=== PATIENT | female | born 1970 | race Caucasian/White ===

== ENCOUNTER 2019-02-01 19:59 | Emergency (ER) | payer OTHER ==
[~2019-02-01] VITALS: Ht 165.1 cm; Wt 59.0 kg
[2019-02-01 20:20] VITALS: Ht 165.1 cm; Wt 59.0 kg
--- NOTE | 2019-02-01 20:25 | NUR ---
PT BROUGHT IN BY [facility] FOR WITNESSED SEIZURE. PER FRIEND AT SCENE PT WAS WORKING OUT AT [employer] WHEN SHE GRABBED THE BACK OF HER HEAD AND HER FRIENDS ARM AND STATED " DON'T LET ME GO" PT THEN SCREAMED AND HAD SEIZURE TYPE MOVEMENTS. PT HAD TONIC/CLONIC MOVEMENTS FOR APPROX 1 MIN. WHEN EMS ARRIVED PT WAS IN A "POST ICTAL" WITH STIFF UPPER EXTREMITIES. PT WAS GIVEN VERSED IM BY MEDICS AND TRANSPORTED TO ED. UPONE ARRIVAL TO ED PT. HAD STIFF UPPER EXTREMITES WITH DECORTICATE LIKE POSTURING AND A R SIDED GAZE. ATTEMPTED TO STRAIGHTEN ARM BUT PUT RETURNED ARMS BACK TO DECORTICATE LIKE POSTURING. PT LOWER EXTREMITIES APPEARED STIFF WITH FOOT POINTED STRAIGHT OUT. R SIDED GAZE NOTED. DR. QUILES AT BEDSIDE FOR CONTINUED EVALUATION.
--- NOTE | 2019-02-01 20:35 | NUR ---
PT AT BEDSIDE TALKING WITH DR. QUILES ABOUT PT. HISTORY. NS BOLUS STARTED AND KEPPRA IV STARTED. PT TRANSPORTED VIA GURNEY TO X-RAY ACCOMPANIED BY JADYN HARDY AND MARTINA HARDY WITH PORTABLE MONITOR AND 02.
--- NOTE | 2019-02-01 20:50 | NUR ---
PT RETUNRED TO ROOM 5. PT CLOTHING REMOVED. FRIEND, SON, AND AT BEDSIDE. PT MAKING SCREAMING NOISES AT TIMES WHILE BEING CHANGED AND AFTER BEING CHANGED INTO GOWN. PT ON CM. MOUTH AND NOSE SUCTIONED. CONTINUE TO MONITOR. MARTINA FRANCIS TO CONTINUE CARE.
--- NOTE | 2019-02-01 20:51 | NUR ---
RECIEVED REPORT FORM PRIETO FRANCIS. PT OBSERVED HAVING SNORING RESPIRATIONS. PT HAD MINIMAL GAG REFLEX. PT MAINTAINING O2 SATURATION ON 2 LITERS OF O2 VIA NC. PT O2 SAT 97%. PT APPEARS TO BE IN POSTICAL STATE. PT OBSERVED CRYING OUT LOUDLY THAN HAS PERIODS OF SILENCE WITH EVEN RESPIRATIONS. PT'S PUPILS ARE EQUAL AND REACTIVE. NO SIGNS OF FACIAL DROPP OR POSTURING FROM PT AT THIS TIME. PT IS ON CAFETERIA SERVER. EKG DONE BY EMT. VITAL SIGNS STABLE. PT IN SEZIURE PRECAUTIONS. FAMILY AT BEDISE. NO ACUTE DISTRESS NOTED.
[2019-02-01 20:59] LABS: BASOPHIL % 0.9 % (0-2); PLATELET COUNT 158 x10^3mcL (130-400); RED CELL DISTRIBUTION WIDTH 13.6 % (11.5-14.5)
[2019-02-01 21:33] LABS: CALCIUM 9.2 mg/dL (8.5-10.1); CARBON DIOXIDE 28.6 mmol/L (21-32); CHLORIDE SERUM 105 mmol/L (98-107); GFR1 > 60 mL/min; GLUCOSE SERUM 100 mg/dL (74-106); POTASSIUM SERUM 3.6 mmol/L (3.5-5.1); SODIUM SERUM 142 mmol/L (136-145)
[2019-02-01 21:42] LABS: ALBUMIN 3.6 g/dL (3.4-5.0); ALKALINE PHOSPHATASE 55 U/L (46-116); ALT/SGPT 18 U/L (14-59); AST/SGOT 16 U/L (15-37); BILIRUBIN TOTAL 0.2 mg/dL (0.20-1.00); FREE T4 0.91 ng/dL (0.76-1.46); TOTAL PROTEIN, SERUM 7.1 g/dL (6.4-8.2)
--- NOTE | 2019-02-01 22:14 | NUR ---
PT RETURNED FROM [place] VIA [facility].
--- NOTE | 2019-02-01 22:16 | NUR ---
PT IS STILL POSTICTAL. PT GCS IS 9 (3 FOR EYE OPENING, 2 FOR SPEECH, 4 FOR MOVEMENT). VITAL SIGNS STABLE. RESPIRATIONS EVEN AND UNLABORED. NO ACUTE DISTRESS NOTED.
--- NOTE | 2019-02-01 22:55 | NUR ---
PT IS ANSWER YES AND NO QUESTIONS BUT WHEN ASKED TO SPEAK THE PT STARTS CRYING. 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 PT IS UNABLE TO MOVE RIGHT LEG BUT NODS THAT SHE CAN FEEL ME TOUCHING. MADE AWARE. VITAL SIGNS STABLE. RESPIRATIONS EVEN AND UNLABORED. NO ACUTE DISTRESS NOTED.
[2019-02-01 23:55] LABS: UA SPECIFIC GRAVITY <=1.005 (1.005-1.035); microscopic required? YES; urine erythrocyte TRACE (NEGATIVE)
[2019-02-02 00:04] LABS: AMPHETAMINE QUAL UR NONE DETECTED (See below)
--- NOTE | 2019-02-02 00:10 | NUR ---
TELE-NEURO CONSAULT COMPLETED. NO CHANGES IN PT'S NEURO STATUS. PT REMAINS TO BE ABLE TO MOVE HER LEFT SIDE BUT UNABLE TO MOVE HER RIGHT. PT CONTINUES TO BE UNABLE TO SPEAK BUT TRIES TO COMUNICATE WITH HER HANDS. VITAL SIGNS STABLE. RESPIRATIONS EVEN AND UNALBORED. NO ACUTE DISTRESS NOTED.
--- NOTE | 2019-02-02 01:00 | NUR ---
NO CHANGE IN THE PT'S NEURO STATUS. VITAL SIGNS STABLE. RESPIRATIONS EVEN AND UNLABORED. NO ACUTE DISTRESS NOTED.
--- NOTE | 2019-02-02 01:55 | NUR ---
PT ASKIGN FOR PEN AND PAPER TO WRITE BUT UNABLE TO WRITE ANYTHING ELGIBLE. PT WAS ABLE TO COMUNICATE THAT SHE NEEDED TO USE THE RESTURE WITH HAND GESTURES AND NODDING. PT PLACED ON BED PANTOAJ. PT IS NOW ABLE TO HAVE GROSS MOVEMENT IN HER RIGHT LEG BUT UNABLE TO WIGGLE HER TOES. PT NODS YES TO HAVING SENSATION IN HER RIGHT LEG STILL. PT STILL UNABLE TO GRIMP RIGHT HAND BUT HAS GROSS MOVEMENTS. VITAL SIGNS STABLE. RESPIRATIONS EVEN AND UNLABORED. NO ACUTE DISTRESS.
[2019-02-02 03:43] VITALS: BP 107/41
--- NOTE | 2019-02-02 03:47 | NUR ---
GAVE REPORT TO CARLOS ALBERTO AT [facility].
== END 2019-02-02 04:00 | disposition short-term general hospital (02) ==
LOC: ED 19:59 → DU 22:51 → ED 02-02 04:00
PROVIDERS: Emergency Medicine
DX: R41.82 Altered mental status, unspecified (principal); G83.84 Todd's paralysis (postepileptic); G43.909 Migraine, unspecified, not intractable, without status migrainosus; R56.9 Unspecified convulsions
CPT/HCPCS: 84439; G0378; G0480; J1953; Q0092; Q9967